=== PATIENT | male | born 1940 | race Caucasian/White ===

== ENCOUNTER → 2017-09-25 | Outpatient (CLI) | payer MEDICARE, OTHER | END | disposition home or self-care (01) | LOC: CFH 10:07 → EDSTATUS 10:30 | PROVIDERS: ATTEND Licensed Practical Nurse | DX: E04.1 Nontoxic single thyroid nodule (principal); E04.9 Nontoxic goiter, unspecified | CPT/HCPCS: 76536 ==

== ENCOUNTER → 2017-10-06 | Outpatient (CLI) | payer MEDICARE, OTHER | END | disposition home or self-care (01) | LOC: RAD 13:15 | PROVIDERS: ATTEND Nurse Practitioner Family | DX: E04.1 Nontoxic single thyroid nodule (principal) | CPT/HCPCS: 76942; 88173 ==

== ENCOUNTER 2017-11-27 07:25 | Inpatient (IN) | payer MEDICARE, OTHER ==
[~2017-11-27] VITALS: Ht 185.4 cm; Wt 87.2 kg
[2017-11-27] MEDS ORDERED: WARF-36 PO (08:12)
[2017-11-27] MEDS ORDERED: SOTA80TA PO (08:12)
[2017-11-27] MEDS ORDERED: ATOR20TA9 PO (08:12)
[2017-11-27] MEDS ORDERED: VIT1TABL32 PO (08:12)
[2017-11-27] MEDS ORDERED: LISI-167 PO (08:12)
[2017-11-27] MEDS ORDERED: WARF2.5T73 PO (08:12)
[2017-11-27] MEDS ORDERED: MULT-717 PO (08:12)
[2017-11-27] MEDS ORDERED: LACTATED RINGERS 1,000 ML IV SCH (08:15)
[2017-11-27] MEDS ORDERED: ACETAMINOPHEN 500 MG TABLET PO ONE (08:30)
[2017-11-27] MEDS ORDERED: GABAPENTIN 300 MG CAPSULE PO ONE (08:30)
[2017-11-27] MEDS ORDERED: LIDOCAINE-MPF 1%, 2ML INFIL ONE (08:30)
[2017-11-27 08:42] VITALS: BP 128/88
[2017-11-27] MEDS ORDERED: FENTANYL PF 250 MCG/5ML ONE (08:49)
[2017-11-27] MEDS ORDERED: MIDAZOLAM 1 MG/ML, 2ML ONE (08:49)
[2017-11-27 08:57] LABS: INTERNATIONAL NORMALIZED RATIO 1.11 (0.93-1.1); PROTHROMBIN TIME 11.4 Seconds (9.6-11.5)
[2017-11-27 08:58] LABS: ALANINE AMINOTRANSFERASE 47 U/L (12-78); ALBUMIN 3.9 g/dL (3.4-5.0); ANION GAP 5 mmol/L (5-15); CALCIUM 9.3 mg/dL (8.5-10.1); CHLORIDE 111 mmol/L (98-107); CREATININE 1.15 mg/dL (0.7-1.3)
[2017-11-27 09:00] LABS: ALKALINE PHOSPHATASE 124 U/L (45-117); BILIRUBIN,TOTAL 0.9 mg/dL (0.2-1.0); TOTAL PROTEIN 7.7 g/dL (6.4-8.2)
[2017-11-27] MEDS ORDERED: BUPIVACAINE/PF 0.5% INFIL ONE (10:16)
[2017-11-27] MEDS ORDERED: EPINEPHRINE 1 MG/ML, 1ML INFIL ONE (10:16)
[2017-11-27] MEDS ORDERED: ONDANSETRON 2MG/ML, 2ML IVPush PRN ×2 (10:30)
[2017-11-27] MEDS ORDERED: PROMETHAZINE 25 MG/ML, 1ML IV PRN ×2 (10:30)
[2017-11-27] MEDS ORDERED: FENTANYL PF 100 MCG/2ML IV PRN (10:30)
[2017-11-27] MEDS ORDERED: MEPERIDINE/PF 25MG/0.5ML IVPush PRN ×2 (10:30)
[2017-11-27] MEDS ORDERED: OXYcodone 5 MG/5 ML ORAL.SOL UDC PO PRN (10:30)
[2017-11-27] MEDS ORDERED: hydrALAzine 20 MG/ML, 1ML IV PRN ×3 (10:30→13:30)
[2017-11-27] MEDS ORDERED: ALBUTEROL SULFATE 2.5 MG/3 ML NPPB PRN ×2 (10:30)
[2017-11-27] MEDS ORDERED: KETOROLAC 30 MG/1 ML IV PRN ×2 (10:30)
[2017-11-27] MEDS ORDERED: HYDROmorphone 1 MG/ML, 1ML IV PRN ×2 (10:30)
[2017-11-27] MEDS ORDERED: LABETALOL 5MG/ML, 20ML IV PRN ×2 (10:30)
[2017-11-27] MEDS ORDERED: METOCLOPRAMIDE 5 MG/ML, 2ML IV PRN ×2 (10:30)
[2017-11-27] MEDS ORDERED: OXYcodone 5 MG/5 ML ORAL.SOL UDC ONE ×2 (11:54→11:57)
[2017-11-27] MEDS: OXYcodone 5 MG/5 ML ORAL.SOL UDC PO PRN ×2 (11:55→11:59)
[2017-11-27] MEDS ORDERED: FENTANYL PF 100 MCG/2ML ONE (11:57)
[2017-11-27] MEDS: FENTANYL PF 100 MCG/2ML IV PRN ×2 (12:00→12:11)
[2017-11-27] MEDS ORDERED: HYDROcodone/APAP 5/325 TABLET PO PRN (13:30)
[2017-11-27] MEDS ORDERED: ACETAMINOPHEN 650 MG SUPP PR PRN (13:30)
[2017-11-27 13:43] VITALS: BP 143/99
[2017-11-27] MEDS ORDERED: SUCCINYLCHOLINE 20 MG/ML, 10ML ONE (15:29)
[2017-11-27] MEDS ORDERED: ONDANSETRON 2MG/ML, 2ML ONE (15:29)
[2017-11-27] MEDS ORDERED: PROPOFOL 10 MG/ML, 20ML ONE (15:29)
[2017-11-27 19:24] VITALS: BP 124/83
[2017-11-27] MEDS: SOTALOL 80MG TABLET PO SCH (22:33)
[2017-11-27] MEDS: ATORVASTATIN 20 MG TABLET PO SCH (22:33)
[2017-11-27] MEDS: SODIUM CHLORIDE FLUSH 10ML SYR IVF SCH (22:33)
[2017-11-28] VITALS: BP 111/71
[2017-11-28 04:11] VITALS: BP 108/62
[2017-11-28 07:20] VITALS: BP 100/59
[2017-11-28] MEDS: SOTALOL 80MG TABLET PO SCH ×2 (09:00→20:54)
[2017-11-28] MEDS: SODIUM CHLORIDE FLUSH 10ML SYR IVF SCH ×2 (09:00→20:56)
[2017-11-28] MEDS: LISINOPRIL 10 MG TABLET PO SCH (09:00)
[2017-11-28] MEDS ORDERED: LORazepam 2 MG/ML, 1ML IVPush PRN (09:30)
[2017-11-28 09:37] LABS: BASOPHILS # (AUTO) 0.01 x10^3/uL (0-0.1); BASOPHILS % (AUTO) 0 % (0-1); EOSINOPHILS # (AUTO) 0.05 x10^3/uL (0-0.4); EOSINOPHILS % (AUTO) 1 % (1-7); LYMPHOCYTES # (AUTO) 0.79 x10^3/uL (1-3.4); LYMPHOCYTES % (AUTO) 11 % (22-44); MD NO; MEAN CORPUSCULAR HEMOGLOBIN 30.9 pg (27.5-34.5); MEAN CORPUSCULAR HGB CONC 33.8 g/dL (33.2-36.2); MEAN CORPUSCULAR VOLUME 91.6 fL (81-97); MEAN PLATELET VOLUME 7.3 fL (7.4-10.4); MONOCYTES % (AUTO) 9 % (2-9); NEUTROPHILS # (AUTO) 5.47 x10^3/uL (1.8-6.8); NEUTROPHILS % (AUTO) 79 % (42-75); PLATELET COUNT 176 x10^3/uL (130-400); RED BLOOD COUNT 3.95 x10^6/uL (4.38-5.82); RED CELL DISTRIBUTION WIDTH 14.5 % (9.4-14.8)
[2017-11-28 09:50] LABS: TROPONIN I < 0.015 ng/mL (0.000-0.045)
[2017-11-28] MEDS: SODIUM CHLORIDE 0.45% 1,000 ML IV SCH (10:11)
[2017-11-28 10:22] LABS: ALANINE AMINOTRANSFERASE 32 U/L (12-78); ALBUMIN 3.3 g/dL (3.4-5.0); ANION GAP 6 mmol/L (5-15); CALCIUM 8.8 mg/dL (8.5-10.1); CHLORIDE 107 mmol/L (98-107); CREATININE 1.09 mg/dL (0.7-1.3)
[2017-11-28 10:24] LABS: ALKALINE PHOSPHATASE 100 U/L (45-117); BILIRUBIN,TOTAL 1.3 mg/dL (0.2-1.0); TOTAL PROTEIN 6.6 g/dL (6.4-8.2)
[2017-11-28] MEDS ORDERED: SODIUM PHOSPHATE 10 MMOL in SODIUM CHLORIDE 0.9% 500 ML IV ONE (12:00)
[2017-11-28] MEDS ORDERED: HEPARIN wt. based STROKE protocol MC PRN (16:30)
[2017-11-28] MEDS: HEPARIN 25,000 UNITS/500ML PMX 500 ML IV PRN (17:56)
[2017-11-28] MEDS: ATORVASTATIN 20 MG TABLET PO SCH (20:54)
[2017-11-29 04:00] VITALS: BP 124/64
[2017-11-29 04:55] LABS: ANION GAP 6 mmol/L (5-15); CALCIUM 8.8 mg/dL (8.5-10.1); CHLORIDE 109 mmol/L (98-107); CREATININE 0.98 mg/dL (0.7-1.3)
[2017-11-29] MEDS: SODIUM CHLORIDE 0.45% 1,000 ML IV SCH (06:11)
[2017-11-29] MEDS: LISINOPRIL 10 MG TABLET PO SCH (07:36)
[2017-11-29] MEDS: SOTALOL 80MG TABLET PO SCH ×2 (07:36→21:25)
[2017-11-29] MEDS: SODIUM CHLORIDE FLUSH 10ML SYR IVF SCH ×2 (11:02→21:25)
[2017-11-29] MEDS: HEPARIN 25,000 UNITS/500ML PMX 500 ML IV PRN (14:33)
[2017-11-29 21:14] VITALS: BP 143/76
[2017-11-29] MEDS: ATORVASTATIN 20 MG TABLET PO SCH (21:25)
[2017-11-30] VITALS (7 sets, daily range): BP systolic 114–139; BP diastolic 68–87
[2017-11-30] MEDS: SODIUM CHLORIDE 0.45% 1,000 ML IV SCH ×2 (02:13→16:28)
[2017-11-30 04:32] LABS: ANION GAP 7 mmol/L (5-15); CALCIUM 7.9 mg/dL (8.5-10.1); CHLORIDE 108 mmol/L (98-107)
[2017-11-30 04:43] LABS: CREATININE 0.88 mg/dL (0.7-1.3); FREE T4 (FREE THYROXINE) 1.01 ng/dL (0.76-1.46)
[2017-11-30] MEDS: LISINOPRIL 10 MG TABLET PO SCH (08:20)
[2017-11-30] MEDS: SODIUM CHLORIDE FLUSH 10ML SYR IVF SCH ×2 (08:21→22:43)
[2017-11-30] MEDS: SOTALOL 80MG TABLET PO SCH ×2 (08:21→22:37)
[2017-11-30] MEDS: HEPARIN 25,000 UNITS/500ML PMX 500 ML IV PRN (08:38)
[2017-11-30 14:55] LABS: O2 FLOW ROOM AIR L/min
[2017-11-30 15:31] LABS: BASOPHILS # (AUTO) 0.02 x10^3/uL (0-0.1); BASOPHILS % (AUTO) 0 % (0-1); EOSINOPHILS # (AUTO) 0.13 x10^3/uL (0-0.4); EOSINOPHILS % (AUTO) 2 % (1-7); LYMPHOCYTES # (AUTO) 0.93 x10^3/uL (1-3.4); LYMPHOCYTES % (AUTO) 15 % (22-44); MD NO; MEAN CORPUSCULAR HEMOGLOBIN 31.6 pg (27.5-34.5); MEAN CORPUSCULAR HGB CONC 34.3 g/dL (33.2-36.2); MEAN CORPUSCULAR VOLUME 92.1 fL (81-97); MEAN PLATELET VOLUME 7.4 fL (7.4-10.4); MONOCYTES # (AUTO) 0.57 x10^3/uL (0.2-0.8); MONOCYTES % (AUTO) 9 % (2-9); NEUTROPHILS # (AUTO) 4.46 x10^3/uL (1.8-6.8); NEUTROPHILS % (AUTO) 73 % (42-75); PLATELET COUNT 175 x10^3/uL (130-400); RED BLOOD COUNT 3.53 x10^6/uL (4.38-5.82); RED CELL DISTRIBUTION WIDTH 14.2 % (9.4-14.8)
[2017-11-30] MEDS: ATORVASTATIN 20 MG TABLET PO SCH (22:36)
[2017-12-01 00:23] VITALS: BP 120/75
[2017-12-01 05:25] LABS: BASOPHILS # (AUTO) 0.02 x10^3/uL (0-0.1); BASOPHILS % (AUTO) 0 % (0-1); EOSINOPHILS # (AUTO) 0.13 x10^3/uL (0-0.4); EOSINOPHILS % (AUTO) 3 % (1-7); LYMPHOCYTES # (AUTO) 0.74 x10^3/uL (1-3.4); LYMPHOCYTES % (AUTO) 15 % (22-44); MD NO; MEAN CORPUSCULAR HEMOGLOBIN 30.7 pg (27.5-34.5); MEAN CORPUSCULAR HGB CONC 33.9 g/dL (33.2-36.2); MEAN CORPUSCULAR VOLUME 90.8 fL (81-97); MEAN PLATELET VOLUME 7.6 fL (7.4-10.4); MONOCYTES # (AUTO) 0.49 x10^3/uL (0.2-0.8); MONOCYTES % (AUTO) 10 % (2-9); NEUTROPHILS % (AUTO) 71 % (42-75); PLATELET COUNT 188 x10^3/uL (130-400); RED BLOOD COUNT 3.61 x10^6/uL (4.38-5.82)
[2017-12-01 05:41] LABS: ALANINE AMINOTRANSFERASE 24 U/L (12-78); ALBUMIN 2.8 g/dL (3.4-5.0); ANION GAP 6 mmol/L (5-15); CALCIUM 8.6 mg/dL (8.5-10.1); CHLORIDE 111 mmol/L (98-107)
[2017-12-01 05:46] LABS: ALKALINE PHOSPHATASE 136 U/L (45-117); BILIRUBIN,TOTAL 1.5 mg/dL (0.2-1.0); CREATININE 0.83 mg/dL (0.7-1.3); TOTAL PROTEIN 6.5 g/dL (6.4-8.2)
[2017-12-01] MEDS: SODIUM CHLORIDE 0.45% 1,000 ML IV SCH ×2 (06:10→18:06)
[2017-12-01 08:04] VITALS: BP 127/82
[2017-12-01] MEDS: SODIUM CHLORIDE FLUSH 10ML SYR IVF SCH ×2 (09:00→20:25)
[2017-12-01] MEDS: LISINOPRIL 10 MG TABLET PO SCH (09:30)
[2017-12-01] MEDS: SOTALOL 80MG TABLET PO SCH ×2 (09:30→20:25)
[2017-12-01 13:40] VITALS: BP 151/96
[2017-12-01 20:00] VITALS: BP 131/83
[2017-12-01] MEDS: ATORVASTATIN 20 MG TABLET PO SCH (20:25)
[2017-12-01] MEDS ORDERED: WARFARIN MODERAT DOSE PROTOCOL XX PRN (21:00)
[2017-12-01] MEDS ORDERED: DO NOT GIVE XX PRN (21:00)
[2017-12-01 21:34] LABS: INTERNATIONAL NORMALIZED RATIO 1.26 (0.93-1.1); PROTHROMBIN TIME 12.9 Seconds (9.6-11.5)
[2017-12-01] MEDS ORDERED: WARFARIN 5 MG TABLET PO-COUM ONE (22:00)
[2017-12-01] MEDS ORDERED: HEPARIN wt. based STROKE protocol MC SCH (23:00)
[2017-12-01] MEDS ORDERED: HEPARIN 25,000 UNITS/500ML PMX 500 ML IV PRN (23:00)
[2017-12-02 01:09] VITALS: BP 132/85
[2017-12-02 06:11] LABS: INTERNATIONAL NORMALIZED RATIO 1.24 (0.93-1.1); PROTHROMBIN TIME 12.7 Seconds (9.6-11.5)
[2017-12-02 06:50] VITALS: BP 123/82
[2017-12-02] MEDS: SOTALOL 80MG TABLET PO SCH ×2 (07:39→20:13)
[2017-12-02] MEDS: LISINOPRIL 10 MG TABLET PO SCH (07:39)
[2017-12-02] MEDS: SODIUM CHLORIDE 0.45% 1,000 ML IV SCH ×2 (07:40→20:38)
[2017-12-02] MEDS: SODIUM CHLORIDE FLUSH 10ML SYR IVF SCH ×2 (07:42→20:15)
[2017-12-02 13:55] VITALS: BP 128/80
[2017-12-02] MEDS ORDERED: WARFARIN 7.5 MG TABLET PO-COUM SCH (18:00)
[2017-12-02 19:26] VITALS: BP 138/72
[2017-12-02] MEDS: ATORVASTATIN 20 MG TABLET PO SCH (20:13)
[2017-12-03 01:19] VITALS: BP 142/73
[2017-12-03 01:45] VITALS: BP 128/88
[2017-12-03] MEDS ORDERED: FUROSEMIDE 20 MG/2 ML ONE (03:23)
[2017-12-03] MEDS ORDERED: FUROSEMIDE 20 MG/2 ML IV ONE (03:30)
[2017-12-03 07:42] VITALS: BP 130/80
[2017-12-03 08:05] LABS: INTERNATIONAL NORMALIZED RATIO 2.22 (0.93-1.1); PROTHROMBIN TIME 22.5 Seconds (9.6-11.5)
[2017-12-03] MEDS: SODIUM CHLORIDE FLUSH 10ML SYR IVF SCH ×2 (08:39→20:12)
[2017-12-03] MEDS: SOTALOL 80MG TABLET PO SCH ×2 (08:39→20:12)
[2017-12-03] MEDS: LISINOPRIL 10 MG TABLET PO SCH (08:39)
[2017-12-03 12:13] LABS: ANION GAP 9 mmol/L (5-15); CALCIUM 8.5 mg/dL (8.5-10.1); CHLORIDE 107 mmol/L (98-107)
[2017-12-03 12:41] VITALS: BP 121/74
[2017-12-03] MEDS ORDERED: WARFARIN 1 MG TABLET PO-COUM SCH (18:00)
[2017-12-03 18:39] VITALS: BP 130/72
[2017-12-03] MEDS: ATORVASTATIN 20 MG TABLET PO SCH (20:13)
[2017-12-04 02:03] VITALS: BP 120/73
[2017-12-04 05:56] LABS: INTERNATIONAL NORMALIZED RATIO 4.2 (0.93-1.1); PROTHROMBIN TIME 42.1 Seconds (9.6-11.5)
[2017-12-04 07:46] VITALS: BP 123/80
[2017-12-04] MEDS ORDERED: HOLD COUMADIN MC PRN (08:00)
[2017-12-04] MEDS: LISINOPRIL 10 MG TABLET PO SCH (08:44)
[2017-12-04] MEDS: SOTALOL 80MG TABLET PO SCH ×2 (08:44→20:51)
[2017-12-04] MEDS: SODIUM CHLORIDE FLUSH 10ML SYR IVF SCH ×2 (08:45→20:51)
[2017-12-04 12:31] VITALS: BP 122/73
[2017-12-04 18:35] VITALS: BP 123/75
[2017-12-04] MEDS: ATORVASTATIN 20 MG TABLET PO SCH (20:51)
[2017-12-05 01:28] VITALS: BP 134/83
[2017-12-05 06:07] LABS: INTERNATIONAL NORMALIZED RATIO 4.14 (0.93-1.1); PROTHROMBIN TIME 41.5 Seconds (9.6-11.5)
[2017-12-05 07:38] VITALS: BP 124/73
[2017-12-05] MEDS: SOTALOL 80MG TABLET PO SCH ×2 (09:42→21:00)
[2017-12-05] MEDS: LISINOPRIL 10 MG TABLET PO SCH (09:43)
[2017-12-05] MEDS: SODIUM CHLORIDE FLUSH 10ML SYR IVF SCH ×2 (09:43→21:09)
[2017-12-05 13:07] VITALS: BP 136/85
[2017-12-05] MEDS ORDERED: AMPICILLIN/SULBACTAM 3 GM in SODIUM CHLORIDE 0.9% 100 ML IV SCH (19:00)
[2017-12-05] MEDS ORDERED: PROPOFOL 100 ML IV PRN (19:25)
[2017-12-05] MEDS ORDERED: LIDOCAINE-MPF 1%, 2ML ENDO PRN (19:30)
[2017-12-05] MEDS ORDERED: PHARMACY MAY ADJ FOR RENAL FX MC SCH (19:30)
[2017-12-05] MEDS: ACETAMINOPHEN 325 MG TABLET PO PRN (20:15)
[2017-12-05] MEDS: PIPERACILLIN/TAZO/PMX 3.375GM 50 ML IV SCH (21:18)
[2017-12-05] MEDS: FAMOTIDINE 20 MG TABLET PO SCH (21:18)
[2017-12-05] MEDS: ATORVASTATIN 20 MG TABLET PO SCH (21:18)
[2017-12-05] MEDS ORDERED: SODIUM CHLORIDE 0.9% 1,000ML IVBOLUS ONE (21:30)
[2017-12-05 22:04] LABS: MICROSCOPIC AUTO
[2017-12-05 22:14] LABS: CULTURE INDICATED? YES
[2017-12-06] MEDS: PIPERACILLIN/TAZO/PMX 3.375GM 50 ML IV SCH ×2 (03:51→08:38)
[2017-12-06 03:54] VITALS: BP 99/50
[2017-12-06 04:45] LABS: BASOPHILS # (AUTO) 0.01 x10^3/uL (0-0.1); BASOPHILS % (AUTO) 0 % (0-1); EOSINOPHILS % (AUTO) 0 % (1-7); LYMPHOCYTES # (AUTO) 0.55 x10^3/uL (1-3.4); LYMPHOCYTES % (AUTO) 11 % (22-44); MD NO; MEAN CORPUSCULAR HEMOGLOBIN 31.2 pg (27.5-34.5); MEAN CORPUSCULAR HGB CONC 34.3 g/dL (33.2-36.2); MEAN PLATELET VOLUME 8.2 fL (7.4-10.4); MONOCYTES # (AUTO) 0.41 x10^3/uL (0.2-0.8); MONOCYTES % (AUTO) 8 % (2-9); NEUTROPHILS % (AUTO) 81 % (42-75); PLATELET COUNT 192 x10^3/uL (130-400); RED BLOOD COUNT 3.14 x10^6/uL (4.38-5.82)
[2017-12-06 04:54] LABS: INTERNATIONAL NORMALIZED RATIO 1.84 (0.93-1.1); PROTHROMBIN TIME 18.7 Seconds (9.6-11.5)
[2017-12-06 04:58] LABS: ANION GAP 9 mmol/L (5-15); CALCIUM 8.3 mg/dL (8.5-10.1); CHLORIDE 114 mmol/L (98-107)
[2017-12-06 05:01] LABS: CREATININE 1.06 mg/dL (0.7-1.3)
[2017-12-06] MEDS ORDERED: POTASSIUM CHLORIDE 10% 40 MEQ/30 ML UDC PO ONE (07:30)
[2017-12-06] MEDS: SODIUM CHLORIDE 0.45% 1,000 ML IV SCH (08:00)
[2017-12-06] MEDS: SODIUM CHLORIDE FLUSH 10ML SYR IVF SCH ×2 (08:38→21:00)
[2017-12-06] MEDS: FAMOTIDINE 20 MG TABLET PO SCH ×2 (08:39→20:22)
[2017-12-06] MEDS: SOTALOL 80MG TABLET PO SCH ×2 (08:39→20:29)
[2017-12-06] MEDS: LISINOPRIL 10 MG TABLET PO SCH (08:39)
[2017-12-06] MEDS ORDERED: VECURONIUM 10 MG ONE (12:00)
[2017-12-06] MEDS ORDERED: MIDAZOLAM 1 MG/ML, 5ML ONE (12:00)
[2017-12-06] MEDS ORDERED: PROPOFOL 10 MG/ML, 100ML IV ONE (12:00)
[2017-12-06] MEDS: AMPICILLIN/SULBACTAM 3 GM in SODIUM CHLORIDE 0.9% 100 ML IV SCH ×2 (15:02→21:07)
[2017-12-06] MEDS ORDERED: WARFARIN 5 MG TABLET PO-COUM ONE (18:00)
[2017-12-06] MEDS: ATORVASTATIN 20 MG TABLET PO SCH (20:22)
[2017-12-07] MEDS: AMPICILLIN/SULBACTAM 3 GM in SODIUM CHLORIDE 0.9% 100 ML IV SCH ×4 (03:11→20:52)
[2017-12-07] MEDS: SODIUM CHLORIDE 0.45% 1,000 ML IV SCH ×2 (03:12→08:02)
[2017-12-07 04:13] VITALS: BP 126/64
[2017-12-07 04:53] LABS: BASOPHILS # (AUTO) 0.03 x10^3/uL (0-0.1); BASOPHILS % (AUTO) 0 % (0-1); EOSINOPHILS # (AUTO) 0.24 x10^3/uL (0-0.4); EOSINOPHILS % (AUTO) 3 % (1-7); LYMPHOCYTES # (AUTO) 0.69 x10^3/uL (1-3.4); LYMPHOCYTES % (AUTO) 9 % (22-44); MD NO; MEAN CORPUSCULAR HEMOGLOBIN 30.9 pg (27.5-34.5); MEAN CORPUSCULAR VOLUME 90.6 fL (81-97); MEAN PLATELET VOLUME 8.3 fL (7.4-10.4); MONOCYTES # (AUTO) 0.53 x10^3/uL (0.2-0.8); MONOCYTES % (AUTO) 7 % (2-9); NEUTROPHILS # (AUTO) 6.62 x10^3/uL (1.8-6.8); NEUTROPHILS % (AUTO) 82 % (42-75); PLATELET COUNT 223 x10^3/uL (130-400); RED CELL DISTRIBUTION WIDTH 14.2 % (9.4-14.8)
[2017-12-07 04:54] LABS: INTERNATIONAL NORMALIZED RATIO 2.38 (0.93-1.1); PROTHROMBIN TIME 24.1 Seconds (9.6-11.5)
[2017-12-07 04:58] LABS: ANION GAP 7 mmol/L (5-15); CALCIUM 8.3 mg/dL (8.5-10.1); CHLORIDE 115 mmol/L (98-107); CREATININE 1.04 mg/dL (0.7-1.3)
[2017-12-07 05:11] LABS: FREE T4 (FREE THYROXINE) 1.27 ng/dL (0.76-1.46)
[2017-12-07] MEDS: LISINOPRIL 10 MG TABLET PO SCH (09:09)
[2017-12-07] MEDS: FAMOTIDINE 20 MG TABLET PO SCH ×2 (09:10→20:46)
[2017-12-07] MEDS: SOTALOL 80MG TABLET PO SCH ×2 (09:10→20:46)
[2017-12-07] MEDS ORDERED: METOCLOPRAMIDE 5 MG/ML, 2ML IV ONE (10:00)
[2017-12-07] MEDS: SODIUM CHLORIDE FLUSH 10ML SYR IVF SCH ×2 (10:15→21:00)
[2017-12-07] MEDS: LINEZOLID PMX 600MG/300ML 300 ML IV SCH ×2 (10:15→21:53)
[2017-12-07] MEDS ORDERED: RACEPINEPHRINE INH 2.25%, 0.5ML ONE ×2 (10:16→23:16)
[2017-12-07] MEDS ORDERED: ALBUTEROL/IPRATROPIUM 2.5MG/0.5MG, 3 ML ONE (10:16)
[2017-12-07] MEDS ORDERED: methylPREDNISolone SOD SUCC 125 MG/2 ML IVPush ONE (10:30)
[2017-12-07] MEDS ORDERED: methylPREDNISolone SOD SUCC 125 MG/2 ML ONE (10:30)
[2017-12-07] MEDS ORDERED: PROPOFOL 100 ML IV PRN (10:53)
[2017-12-07] MEDS ORDERED: MIDAZOLAM 1 MG/ML, 5ML ONE (12:00)
[2017-12-07] MEDS ORDERED: PROPOFOL 10 MG/ML, 20ML ONE (12:00)
[2017-12-07] MEDS ORDERED: PROPOFOL 10 MG/ML, 100ML IV ONE (12:00)
[2017-12-07] MEDS ORDERED: ETOMIDATE 40 MG/20 ML ONE (12:00)
[2017-12-07] MEDS ORDERED: WARFARIN 5 MG TABLET PO-COUM ONE (17:38)
[2017-12-07] MEDS: DEXAMETHASONE 4 MG/ML, 1ML IVPush SCH (17:42)
[2017-12-07] MEDS ORDERED: WARFARIN 2.5 MG TABLET PO-COUM ONE (18:00)
[2017-12-07] MEDS: ACETAMINOPHEN 325 MG TABLET PO PRN (20:46)
[2017-12-07] MEDS: ATORVASTATIN 20 MG TABLET PO SCH (20:46)
[2017-12-08] MEDS: DEXAMETHASONE 4 MG/ML, 1ML IVPush SCH ×4 (01:18→18:03)
[2017-12-08] MEDS: AMPICILLIN/SULBACTAM 3 GM in SODIUM CHLORIDE 0.9% 100 ML IV SCH ×2 (03:03→08:54)
[2017-12-08 04:00] VITALS: BP 117/60
[2017-12-08 04:48] LABS: FIO2 40 %
[2017-12-08 05:02] LABS: MEAN CORPUSCULAR HEMOGLOBIN 30.7 pg (27.5-34.5); MEAN CORPUSCULAR HGB CONC 33.7 g/dL (33.2-36.2); MEAN PLATELET VOLUME 8.6 fL (7.4-10.4); PLATELET COUNT 247 x10^3/uL (130-400); RED BLOOD COUNT 3.28 x10^6/uL (4.38-5.82)
[2017-12-08 05:11] LABS: INTERNATIONAL NORMALIZED RATIO 2.16 (0.93-1.1); PROTHROMBIN TIME 21.9 Seconds (9.6-11.5)
[2017-12-08 05:38] LABS: BASOPHILS # (AUTO) 0.12 x10^3/uL (0-0.1); BASOPHILS % (AUTO) 2 % (0-1); EOSINOPHILS # (AUTO) 0.01 x10^3/uL (0-0.4); EOSINOPHILS % (AUTO) 0 % (1-7); LYMPHOCYTES # (AUTO) 0.43 x10^3/uL (1-3.4); LYMPHOCYTES % (AUTO) 6 % (22-44); MD SCAN; MONOCYTES # (AUTO) 0.16 x10^3/uL (0.2-0.8); MONOCYTES % (AUTO) 2 % (2-9); NEUTROPHILS # (AUTO) 6.74 x10^3/uL (1.8-6.8); NEUTROPHILS % (AUTO) 90 % (42-75)
[2017-12-08 06:30] LABS: ANION GAP 9 mmol/L (5-15); CALCIUM 8.4 mg/dL (8.5-10.1); CHLORIDE 112 mmol/L (98-107)
[2017-12-08 06:32] LABS: CREATININE 0.96 mg/dL (0.7-1.3); TRIGLYCERIDES 86 mg/dL (50-200)
[2017-12-08] MEDS ORDERED: LACTULOSE 20 GM/30 ML UDC PO PRN (08:00)
[2017-12-08] MEDS: FUROSEMIDE 20 MG/2 ML IV SCH ×2 (08:53→21:19)
[2017-12-08] MEDS: FAMOTIDINE 20 MG TABLET PO SCH ×2 (08:53→21:19)
[2017-12-08] MEDS: SOTALOL 80MG TABLET PO SCH ×2 (08:53→21:19)
[2017-12-08] MEDS: LINEZOLID PMX 600MG/300ML 300 ML IV SCH (08:54)
[2017-12-08] MEDS: SODIUM CHLORIDE FLUSH 10ML SYR IVF SCH ×2 (08:54→21:18)
[2017-12-08] MEDS: LISINOPRIL 10 MG TABLET PO SCH (08:54)
[2017-12-08] MEDS: ERTAPENEM 1 GM in SODIUM CHLORIDE 0.9% 50 ML IV SCH (12:48)
[2017-12-08] MEDS ORDERED: WARFARIN 5 MG TABLET PO-COUM ONE (18:00)
[2017-12-08] MEDS: ATORVASTATIN 20 MG TABLET PO SCH (21:19)
[2017-12-08] MEDS: ACETAMINOPHEN 325 MG TABLET PO PRN (21:19)
[2017-12-09] MEDS: DEXAMETHASONE 4 MG/ML, 1ML IVPush SCH ×4 (00:29→17:20)
[2017-12-09 04:00] VITALS: BP 112/74
[2017-12-09 04:21] LABS: BASOPHILS # (AUTO) 0.01 x10^3/uL (0-0.1); BASOPHILS % (AUTO) 0 % (0-1); EOSINOPHILS # (AUTO) 0.03 x10^3/uL (0-0.4); EOSINOPHILS % (AUTO) 0 % (1-7); LYMPHOCYTES # (AUTO) 0.43 x10^3/uL (1-3.4); LYMPHOCYTES % (AUTO) 5 % (22-44); MD NO; MEAN CORPUSCULAR HEMOGLOBIN 30.3 pg (27.5-34.5); MEAN CORPUSCULAR HGB CONC 33.1 g/dL (33.2-36.2); MEAN CORPUSCULAR VOLUME 91.6 fL (81-97); MONOCYTES # (AUTO) 0.26 x10^3/uL (0.2-0.8); MONOCYTES % (AUTO) 3 % (2-9); NEUTROPHILS % (AUTO) 92 % (42-75); PLATELET COUNT 348 x10^3/uL (130-400); RED BLOOD COUNT 3.55 x10^6/uL (4.38-5.82); RED CELL DISTRIBUTION WIDTH 14.1 % (9.4-14.8)
[2017-12-09] MEDS: ACETAMINOPHEN 325 MG TABLET PO PRN ×3 (04:25→20:10)
[2017-12-09 04:30] LABS: INTERNATIONAL NORMALIZED RATIO 2.46 (0.93-1.1); PROTHROMBIN TIME 24.9 Seconds (9.6-11.5)
[2017-12-09 04:32] LABS: ANION GAP 4 mmol/L (5-15); CALCIUM 8.4 mg/dL (8.5-10.1); CHLORIDE 109 mmol/L (98-107); CREATININE 1.05 mg/dL (0.7-1.3)
[2017-12-09] MEDS: SOTALOL 80MG TABLET PO SCH ×2 (08:07→20:10)
[2017-12-09] MEDS: FAMOTIDINE 20 MG TABLET PO SCH ×2 (08:07→20:09)
[2017-12-09] MEDS: LISINOPRIL 10 MG TABLET PO SCH (08:08)
[2017-12-09] MEDS: SODIUM CHLORIDE FLUSH 10ML SYR IVF SCH ×2 (08:17→20:10)
[2017-12-09] MEDS: FUROSEMIDE 20 MG/2 ML IV SCH ×2 (08:17→20:09)
[2017-12-09] MEDS ORDERED: INSULIN LISPRO 100 UNITS/ML, PEN ONE (08:46)
[2017-12-09] MEDS: INSULIN LISPRO 100 UNITS/ML, PEN SQ-INSULIN SCH ×3 (08:55→17:19)
[2017-12-09] MEDS: ERTAPENEM 1 GM in SODIUM CHLORIDE 0.9% 50 ML IV SCH (13:04)
[2017-12-09] MEDS ORDERED: WARFARIN 3 MG TABLET PO-COUM ONE (18:00)
[2017-12-09] MEDS: ATORVASTATIN 20 MG TABLET PO SCH (20:10)
[2017-12-10] MEDS: INSULIN LISPRO 100 UNITS/ML, PEN SQ-INSULIN SCH ×5 (00:29→23:58)
[2017-12-10] MEDS: DEXAMETHASONE 4 MG/ML, 1ML IVPush SCH ×3 (00:29→11:55)
[2017-12-10 04:00] VITALS: BP 136/71
[2017-12-10 04:45] LABS: BASOPHILS # (AUTO) 0.13 x10^3/uL (0-0.1); BASOPHILS % (AUTO) 2 % (0-1); EOSINOPHILS # (AUTO) 0.01 x10^3/uL (0-0.4); EOSINOPHILS % (AUTO) 0 % (1-7); LYMPHOCYTES # (AUTO) 0.42 x10^3/uL (1-3.4); LYMPHOCYTES % (AUTO) 5 % (22-44); MD NO; MEAN CORPUSCULAR HEMOGLOBIN 30.5 pg (27.5-34.5); MEAN CORPUSCULAR HGB CONC 33.4 g/dL (33.2-36.2); MEAN CORPUSCULAR VOLUME 91.1 fL (81-97); MEAN PLATELET VOLUME 8.4 fL (7.4-10.4); MONOCYTES # (AUTO) 0.27 x10^3/uL (0.2-0.8); MONOCYTES % (AUTO) 3 % (2-9); NEUTROPHILS # (AUTO) 7.88 x10^3/uL (1.8-6.8); NEUTROPHILS % (AUTO) 91 % (42-75); PLATELET COUNT 340 x10^3/uL (130-400); RED BLOOD COUNT 3.54 x10^6/uL (4.38-5.82); RED CELL DISTRIBUTION WIDTH 13.8 % (9.4-14.8)
[2017-12-10 04:55] LABS: ANION GAP 8 mmol/L (5-15); CALCIUM 8.1 mg/dL (8.5-10.1); CHLORIDE 106 mmol/L (98-107); CREATININE 0.92 mg/dL (0.7-1.3); TRIGLYCERIDES 139 mg/dL (50-200)
[2017-12-10 05:01] LABS: INTERNATIONAL NORMALIZED RATIO 2.99 (0.93-1.1); PROTHROMBIN TIME 30.4 Seconds (9.6-11.5)
[2017-12-10] MEDS: FAMOTIDINE 20 MG TABLET PO SCH ×2 (09:07→20:46)
[2017-12-10] MEDS: SOTALOL 80MG TABLET PO SCH ×2 (09:07→20:46)
[2017-12-10] MEDS: LISINOPRIL 10 MG TABLET PO SCH (09:08)
[2017-12-10] MEDS: SODIUM CHLORIDE FLUSH 10ML SYR IVF SCH ×2 (09:10→20:47)
[2017-12-10] MEDS: ERTAPENEM 1 GM in SODIUM CHLORIDE 0.9% 50 ML IV SCH (11:57)
[2017-12-10] MEDS ORDERED: ALBUTEROL SULFATE 2.5 MG/3 ML NPPB PRN (12:00)
[2017-12-10 14:56] VITALS: BP 128/84
[2017-12-10 17:39] LABS: CLOSTRIDIUM DIFFICILE ANTIGEN NEGATIVE; CLOSTRIDIUM DIFFICILE TOXIN NEGATIVE (Negative)
[2017-12-10] MEDS ORDERED: WARFARIN 1 MG TABLET PO-COUM ONE (18:00)
[2017-12-10 18:54] VITALS: BP 131/92
[2017-12-10] MEDS: ATORVASTATIN 20 MG TABLET PO SCH (20:47)
[2017-12-11 01:30] VITALS: BP 124/77
[2017-12-11 05:15] LABS: INTERNATIONAL NORMALIZED RATIO 2.66 (0.93-1.1); PROTHROMBIN TIME 27.1 Seconds (9.6-11.5)
[2017-12-11 05:18] LABS: CALCIUM 8.8 mg/dL (8.5-10.1); CHLORIDE 108 mmol/L (98-107); CREATININE 0.88 mg/dL (0.7-1.3)
[2017-12-11 05:25] LABS: BASOPHILS # (AUTO) 0.11 x10^3/uL (0-0.1); BASOPHILS % (AUTO) 1 % (0-1); EOSINOPHILS % (AUTO) 0 % (1-7); LYMPHOCYTES # (AUTO) 0.52 x10^3/uL (1-3.4); LYMPHOCYTES % (AUTO) 6 % (22-44); MD NO; MEAN CORPUSCULAR HEMOGLOBIN 30.2 pg (27.5-34.5); MEAN CORPUSCULAR HGB CONC 33.5 g/dL (33.2-36.2); MEAN CORPUSCULAR VOLUME 90.1 fL (81-97); MEAN PLATELET VOLUME 8.1 fL (7.4-10.4); MONOCYTES # (AUTO) 0.73 x10^3/uL (0.2-0.8); MONOCYTES % (AUTO) 8 % (2-9); NEUTROPHILS # (AUTO) 7.95 x10^3/uL (1.8-6.8); NEUTROPHILS % (AUTO) 86 % (42-75); PLATELET COUNT 375 x10^3/uL (130-400); RED BLOOD COUNT 3.77 x10^6/uL (4.38-5.82); RED CELL DISTRIBUTION WIDTH 13.9 % (9.4-14.8)
[2017-12-11 05:34] LABS: ANION GAP 6 mmol/L (5-15)
[2017-12-11] MEDS: INSULIN LISPRO 100 UNITS/ML, PEN SQ-INSULIN SCH ×3 (06:32→17:37)
[2017-12-11 07:46] VITALS: BP 119/73
[2017-12-11 09:34] VITALS: BP 124/78
[2017-12-11] MEDS: FAMOTIDINE 20 MG TABLET PO SCH ×2 (09:35→20:01)
[2017-12-11] MEDS: SOTALOL 80MG TABLET PO SCH ×2 (09:36→20:01)
[2017-12-11] MEDS: LISINOPRIL 10 MG TABLET PO SCH (09:36)
[2017-12-11] MEDS: SODIUM CHLORIDE FLUSH 10ML SYR IVF SCH ×2 (09:39→20:02)
[2017-12-11] MEDS: ERTAPENEM 1 GM in SODIUM CHLORIDE 0.9% 50 ML IV SCH (12:39)
[2017-12-11 13:00] VITALS: BP 124/79
[2017-12-11] MEDS ORDERED: WARFARIN 1 MG TABLET PO-COUM ONE (18:00)
[2017-12-11 19:25] VITALS: BP 129/79
[2017-12-11] MEDS: ATORVASTATIN 20 MG TABLET PO SCH (20:01)
[2017-12-12 01:45] VITALS: BP 110/75
[2017-12-12 05:00] LABS: BASOPHILS # (AUTO) 0.07 x10^3/uL (0-0.1); BASOPHILS % (AUTO) 1 % (0-1); EOSINOPHILS # (AUTO) 0.01 x10^3/uL (0-0.4); EOSINOPHILS % (AUTO) 0 % (1-7); LYMPHOCYTES % (AUTO) 10 % (22-44); MD NO; MEAN CORPUSCULAR HEMOGLOBIN 30.8 pg (27.5-34.5); MEAN CORPUSCULAR HGB CONC 33.8 g/dL (33.2-36.2); MEAN CORPUSCULAR VOLUME 91.1 fL (81-97); MEAN PLATELET VOLUME 7.8 fL (7.4-10.4); MONOCYTES # (AUTO) 0.74 x10^3/uL (0.2-0.8); MONOCYTES % (AUTO) 8 % (2-9); NEUTROPHILS # (AUTO) 7.23 x10^3/uL (1.8-6.8); NEUTROPHILS % (AUTO) 81 % (42-75); PLATELET COUNT 398 x10^3/uL (130-400); RED BLOOD COUNT 3.82 x10^6/uL (4.38-5.82); RED CELL DISTRIBUTION WIDTH 14.4 % (9.4-14.8)
[2017-12-12 05:04] LABS: INTERNATIONAL NORMALIZED RATIO 2.09 (0.93-1.1); PROTHROMBIN TIME 21.4 Seconds (9.6-11.5)
[2017-12-12 05:06] LABS: ANION GAP 3 mmol/L (5-15); CALCIUM 8.6 mg/dL (8.5-10.1); CHLORIDE 110 mmol/L (98-107)
[2017-12-12 05:09] LABS: CREATININE 0.83 mg/dL (0.7-1.3)
[2017-12-12] MEDS: INSULIN LISPRO 100 UNITS/ML, PEN SQ-INSULIN SCH ×5 (06:00→23:36)
[2017-12-12 07:21] VITALS: BP 107/75
[2017-12-12] MEDS: LISINOPRIL 10 MG TABLET PO SCH (08:47)
[2017-12-12] MEDS: SODIUM CHLORIDE FLUSH 10ML SYR IVF SCH ×2 (08:47→20:19)
[2017-12-12] MEDS: FAMOTIDINE 20 MG TABLET PO SCH ×2 (08:48→20:17)
[2017-12-12] MEDS: SOTALOL 80MG TABLET PO SCH ×2 (08:48→20:17)
[2017-12-12] MEDS: ERTAPENEM 1 GM in SODIUM CHLORIDE 0.9% 50 ML IV SCH (11:57)
[2017-12-12 14:16] VITALS: BP 105/73
[2017-12-12] MEDS ORDERED: WARFARIN 2.5 MG TABLET PO-COUM ONE (18:00)
[2017-12-12 19:26] VITALS: BP 106/72
[2017-12-12] MEDS: ATORVASTATIN 20 MG TABLET PO SCH (20:17)
[2017-12-13 02:13] VITALS: BP 90/59
[2017-12-13 05:37] LABS: BASOPHILS # (AUTO) 0.03 x10^3/uL (0-0.1); BASOPHILS % (AUTO) 0 % (0-1); EOSINOPHILS # (AUTO) 0.19 x10^3/uL (0-0.4); EOSINOPHILS % (AUTO) 2 % (1-7); LYMPHOCYTES # (AUTO) 0.96 x10^3/uL (1-3.4); LYMPHOCYTES % (AUTO) 11 % (22-44); MD NO; MEAN CORPUSCULAR HEMOGLOBIN 30.8 pg (27.5-34.5); MEAN CORPUSCULAR VOLUME 90.5 fL (81-97); MEAN PLATELET VOLUME 7.6 fL (7.4-10.4); MONOCYTES # (AUTO) 0.55 x10^3/uL (0.2-0.8); MONOCYTES % (AUTO) 7 % (2-9); NEUTROPHILS # (AUTO) 6.77 x10^3/uL (1.8-6.8); NEUTROPHILS % (AUTO) 80 % (42-75); PLATELET COUNT 356 x10^3/uL (130-400); RED CELL DISTRIBUTION WIDTH 14.2 % (9.4-14.8)
[2017-12-13 05:54] LABS: CHLORIDE 107 mmol/L (98-107)
[2017-12-13 05:58] LABS: INTERNATIONAL NORMALIZED RATIO 1.91 (0.93-1.1); PROTHROMBIN TIME 19.6 Seconds (9.6-11.5)
[2017-12-13 06:01] LABS: ANION GAP 6 mmol/L (5-15); CALCIUM 8.6 mg/dL (8.5-10.1); CREATININE 0.95 mg/dL (0.7-1.3)
[2017-12-13] MEDS: INSULIN LISPRO 100 UNITS/ML, PEN SQ-INSULIN SCH ×3 (06:30→17:54)
[2017-12-13 07:54] VITALS: BP 115/74
[2017-12-13] MEDS: FAMOTIDINE 20 MG TABLET PO SCH (07:58)
[2017-12-13] MEDS: SOTALOL 80MG TABLET PO SCH (07:58)
[2017-12-13] MEDS: SODIUM CHLORIDE FLUSH 10ML SYR IVF SCH (07:58)
[2017-12-13] MEDS: LISINOPRIL 10 MG TABLET PO SCH (07:58)
[2017-12-13] MEDS: ERTAPENEM 1 GM in SODIUM CHLORIDE 0.9% 50 ML IV SCH (12:26)
[2017-12-13 12:40] VITALS: BP 91/61
[2017-12-13 15:18] VITALS: BP 115/76
[2017-12-13] MEDS ORDERED: LISI-167 PO (17:03)
[2017-12-13] MEDS ORDERED: SOTA80TA18 PO (17:03)
[2017-12-13] MEDS ORDERED: Initiate Coumadin Protocol MC (17:03)
[2017-12-13] MEDS ORDERED: FAMO20TA7 PO (17:03)
[2017-12-13] MEDS ORDERED: ATOR20TA9 PO (17:03)
[2017-12-13] MEDS ORDERED: ertapenem IVPB (17:06)
[2017-12-13 17:52] VITALS: BP 88/66
[2017-12-13] MEDS ORDERED: WARFARIN 2 MG TABLET PO-COUM ONE (18:00)
== END 2017-12-13 18:26 | DRG 625 ==
LOC: OUT 07:25 → 4NOR 12:35 → OUT 13:14 → CCU 11-28 08:55 → 4EST 11-29 15:43 → CCU 12-05 18:09 → 4NOR 12-10 14:49
PROVIDERS: ADMIT Surgery; ATTEND Hospitalist
PROC: 4A1104G Monitoring of Peripheral Nervous Electrical Activity, Intraoperative, Open Approach (ICD-10-PCS; 2017-11-27)
PROC: 0GTG0ZZ Resection of Left Thyroid Gland Lobe, Open Approach (ICD-10-PCS; principal; 2017-11-27 09:45)
PROC: 0T9B70Z Drainage of Bladder with Drainage Device, Via Natural or Artificial Opening (ICD-10-PCS; 2017-12-05)
PROC: 0BH17EZ Insertion of Endotracheal Airway into Trachea, Via Natural or Artificial Opening (ICD-10-PCS; 2017-12-05)
PROC: 5A1945Z Respiratory Ventilation, 24-96 Consecutive Hours (ICD-10-PCS; 2017-12-05)
PROC: 0BH17EZ Insertion of Endotracheal Airway into Trachea, Via Natural or Artificial Opening (ICD-10-PCS; 2017-12-07)
PROC: 5A1945Z Respiratory Ventilation, 24-96 Consecutive Hours (ICD-10-PCS; 2017-12-07)
DX: E04.1 Nontoxic single thyroid nodule (principal); A41.9 Sepsis, unspecified organism; I63.40 Cerebral infarction due to embolism of unspecified cerebral artery; J69.0 Pneumonitis due to inhalation of food and vomit; J96.01 Acute respiratory failure with hypoxia; D68.69 Other thrombophilia; Z99.11 Dependence on respirator [ventilator] status; G81.94 Hemiplegia, unspecified affecting left nondominant side; E78.5 Hyperlipidemia, unspecified; I10 Essential (primary) hypertension; I48.2 Chronic atrial fibrillation; I65.23 Occlusion and stenosis of bilateral carotid arteries; R13.10 Dysphagia, unspecified; Z79.01 Long term (current) use of anticoagulants; Z80.0 Family history of malignant neoplasm of digestive organs; Z82.3 Family history of stroke; Z86.73 Personal history of transient ischemic attack (TIA), and cerebral infarction without residual deficits; Z95.0 Presence of cardiac pacemaker
CPT/HCPCS: 36415; 36600; 70450; 70490; 71045; 74018; 74230; 80048; 80053; 81001; 82040; 82330; 82803; 82962; 83605; 83735; 83970; 84100; 84439; 84443; 84478; 84481; 84484; 85014; 85018; 85025; 85520; 85610; 85730; 87040; 87070; 87077; 87081; 87086; 87186; 87205; 87324; 88307; 88331; 93005; 93306; 93880; 93970; 94002; 94003; 95819; G0378; J0171; J0295; J1100; J1335; J1644; J2020; J2250; J2405; J2543; J2704; J3010; J3490; 92523-GN; C1760; J0330; J1940; J2765; J2930; J7030; J7040; J7120

== ENCOUNTER 2019-11-22 10:51 | Outpatient (CLI) | payer MEDICARE, OTHER ==
[~2019-11-22 10:51] MED LIST: ATOR20TA37 PO; FAMO20TA7 PO; Initiate Coumadin Protocol MC; LISI-167 PO; MULT-717 PO; SOTA80TA PO; SOTA80TA18 PO; VIT1TABL32 PO; WARF-36 PO; WARF2.5T32 PO; ertapenem IVPB
[2019-11-22 12:39] LABS: BASOPHILS # (AUTO) 0.02 x10^3/uL (0-0.1); BASOPHILS % (AUTO) 0 % (0-1); EOSINOPHILS # (AUTO) 0.26 x10^3/uL (0-0.4); EOSINOPHILS % (AUTO) 5 % (1-7); LYMPHOCYTES # (AUTO) 0.86 x10^3/uL (1-3.4); LYMPHOCYTES % (AUTO) 17 % (22-44); MD NO; MEAN CORPUSCULAR HEMOGLOBIN 29.8 pg (27.5-34.5); MEAN CORPUSCULAR HGB CONC 32.9 g/dL (33.2-36.2); MEAN CORPUSCULAR VOLUME 90.5 fL (81-97); MEAN PLATELET VOLUME 7.6 fL (7.4-10.4); MONOCYTES # (AUTO) 0.49 x10^3/uL (0.2-0.8); MONOCYTES % (AUTO) 10 % (2-9); NEUTROPHILS # (AUTO) 3.46 x10^3/uL (1.8-6.8); NEUTROPHILS % (AUTO) 68 % (42-75); PLATELET COUNT 185 x10^3/uL (130-400); RED BLOOD COUNT 4.72 x10^6/uL (4.38-5.82); RED CELL DISTRIBUTION WIDTH 15.6 % (9.4-14.8)
[2019-11-22 12:48] LABS: ALBUMIN 3.9 g/dL (3.4-5.0); ANION GAP 4 mmol/L (5-15); CALCIUM 9.9 mg/dL (8.5-10.1); CHLORIDE 108 mmol/L (98-107); INTERNATIONAL NORMALIZED RATIO 3.96 (0.93-1.1); PROTHROMBIN TIME 41.4 Seconds (9.6-11.5)
[2019-11-22 12:54] LABS: ALANINE AMINOTRANSFERASE 35 U/L (12-78); ALKALINE PHOSPHATASE 246 U/L (45-117); BILIRUBIN,TOTAL 1.1 mg/dL (0.2-1.0); CREATININE 1.22 mg/dL (0.7-1.3); TOTAL PROTEIN 7.4 g/dL (6.4-8.2)
[2019-11-22] MEDS ORDERED: FURO40TA6 PO (13:43)
[2019-11-22] MEDS ORDERED: ASCO10004 PO (13:44)
== END 2019-11-22 23:59 | disposition home or self-care (01) ==
LOC: STAR 10:51
PROVIDERS: ATTEND Internal Medicine Geriatric Medicine
DX: Z01.818 Encounter for other preprocedural examination (principal); Z11.59 Encounter for screening for other viral diseases
CPT/HCPCS: 36415; 80053; 85025; 85610; 85730; 87635; 93005

== ENCOUNTER 2019-11-26 06:57 | Day surgery (SDC) | payer MEDICARE, OTHER ==
[~2019-11-26] VITALS: Ht 182.9 cm; Wt 86.5 kg
[~2019-11-26 06:57] MED LIST changes: +ASCO10004 PO; +FURO40TA6 PO
[2019-11-26] MEDS ORDERED: CHLORHEXIDINE 15 ML UDC MM STA (07:32)
[2019-11-26] MEDS ORDERED: LACTATED RINGERS 1,000 ML IV SCH (07:32)
[2019-11-26 07:33] VITALS: BP 131/75
[2019-11-26] MEDS ORDERED: PROPOFOL 10 MG/ML, 20ML ONE ×2 (08:16)
== END 2019-11-26 10:15 | disposition home or self-care (01) ==
LOC: OUT 06:57
PROVIDERS: ATTEND Internal Medicine Geriatric Medicine
DX: K62.5 Hemorrhage of anus and rectum (principal); D12.3 Benign neoplasm of transverse colon; D12.2 Benign neoplasm of ascending colon; K64.0 First degree hemorrhoids; I48.91 Unspecified atrial fibrillation; Z86.010 Personal history of colon polyps; Z79.899 Other long term (current) drug therapy; Z98.890 Other specified postprocedural states; Z72.89 Other problems related to lifestyle; Z79.01 Long term (current) use of anticoagulants; Z95.810 Presence of automatic (implantable) cardiac defibrillator; Z87.891 Personal history of nicotine dependence; Z82.49 Family history of ischemic heart disease and other diseases of the circulatory system; Z80.0 Family history of malignant neoplasm of digestive organs
CPT/HCPCS: 45380; 45381; 45385; 88305; J2704; J7120

== ENCOUNTER → 2020-01-02 | Outpatient (CLI) | payer MEDICARE, OTHER ==
[~2020-01-02] MED LIST changes: +ASCO100018 PO; -ASCO10004 PO
== END | disposition home or self-care (01) ==
LOC: CFH 12:22
PROVIDERS: ATTEND Internal Medicine Cardiovascular Disease
DX: I08.8 Other rheumatic multiple valve diseases (principal); I25.10 Atherosclerotic heart disease of native coronary artery without angina pectoris; Z79.01 Long term (current) use of anticoagulants
CPT/HCPCS: 93306

== ENCOUNTER → 2020-05-29 | Outpatient (CLI) | payer MEDICARE, OTHER ==
[~2020-05-29] MED LIST changes: +REGADENOSON 0.4 MG/5 ML SYRINGE ONE
== END | disposition home or self-care (01) ==
LOC: CFH 12:16
PROVIDERS: ATTEND Internal Medicine Cardiovascular Disease
DX: I21.09 ST elevation (STEMI) myocardial infarction involving other coronary artery of anterior wall (principal); I25.10 Atherosclerotic heart disease of native coronary artery without angina pectoris; I48.0 Paroxysmal atrial fibrillation; I25.5 Ischemic cardiomyopathy; I21.29 ST elevation (STEMI) myocardial infarction involving other sites; Z95.810 Presence of automatic (implantable) cardiac defibrillator
CPT/HCPCS: 78452; 93017; A9502; J2785